=== PATIENT | male | born 1945 | race Caucasian/White ===

== ENCOUNTER → 2024-04-01 | Outpatient (CLI) | payer MEDICARE, BC, SELFPAY ==
[2024-04-02 20:41] LABS: Prostate Specific Antigen 0.41 ng/mL (0-4.00)
== END | disposition home or self-care (01) ==
PROVIDERS: PCP Internal Medicine; Referring Provider Urology; Visit Provider Urology
DX: N40.1 Benign prostatic hyperplasia with lower urinary tract symptoms (principal)
CPT/HCPCS: 36415; 84153

== ENCOUNTER → 2024-04-01 | Outpatient (BNVA) | payer MEDICARE, BC, SELFPAY | END | disposition home or self-care (01) | PROVIDERS: PCP Internal Medicine; Referring Provider Internal Medicine; Visit Provider Urology | DX: N40.1 Benign prostatic hyperplasia with lower urinary tract symptoms (principal); N13.8 Other obstructive and reflux uropathy; I10 Essential (primary) hypertension; E78.5 Hyperlipidemia, unspecified; Z87.442 Personal history of urinary calculi | CPT/HCPCS: 81003; 99212; G0463 ==

== ENCOUNTER → 2024-04-25 | Outpatient (CLI) | payer MEDICARE, BC, SELFPAY ==
[2024-04-25 13:17] LABS: Collection Type, Urine Clean Catch; Squamous Epithelial Cell,Urine 0 /hpf (0-5)
[2024-04-25 13:42] LABS: Bilirubin,Urine Negative (Negative); Blood,Urine Trace (Negative); Clarity,Urine Clear (Clear/Hazy); Color,Urine Lt-Yellow (Lt Yel-Yel); Glucose, Urine Negative (Negative); Ketones,Urine Negative (Negative); Leukocyte Esterase,Urine Negative (Negative); Nitrite,Urine Negative (Negative); Protein,Urine Negative (Neg - Trace); RBC,Urine < 1 /hpf (0-3); Specific Gravity,Urine 1.011 (1.001-1.035); Urobilinogen,Urine Negative mg/dL (0.0-1.0); WBC,Urine 1 /hpf (0-5)
[2024-04-25 13:47] LABS: Parathyroid Hormone Intact 39.5 pg/ml (18.5-88.0)
[2024-04-25 13:59] LABS: Vitamin D 25 Hydroxy Total 32.9 ng/mL (7.3-40.2)
[2024-04-25 14:05] LABS: Alanine Aminotransferase 30 U/L (10-49); Albumin, Serum 4.4 gm/dL (3.4-4.8); Alkaline Phosphatase 97 U/L (46-116); Anion Gap 6 (7-16); Aspartate Amino Transferase 28 U/L (0-34); BUN/Creatinine Ratio 13 Ratio (12-20); Bilirubin,Total 0.6 mg/dL (0.3-1.2); Blood Urea Nitrogen 12 mg/dL (9-23); Carbon Dioxide 28.4 mMol/L (20.0-31.0); Chloride 110 mMol/L (98-107); Creatinine (Component) 0.9 mg/dL (0.6-1.3); Globulin 2.2 gm/dL (2.3-3.5); Glucose 98 mg/dL (74-106); Osmolality,Calculated 286 (275-295); Phosphorous 3.3 mg/dL (2.4-5.1); Potassium 4.5 mMol/L (3.4-5.1); Sodium 144 mMol/L (136-145); Total Protein 6.6 gm/dL (5.7-8.2); eGFR > 60 See Note
[2024-04-25 15:17] LABS: Cardiac Risk Estimate 2.2 RATIO (4.0-6.7); Cholesterol 96 mg/dL (132-200); HDL Cholesterol 43 mg/dL (40-60); LDL Cholesterol,Calculated 37 mg/dL (0-130); Triglycerides 81 mg/dL (30-150)
== END | disposition home or self-care (01) ==
LOC: COPL 11:54
PROVIDERS: PCP Internal Medicine; Referring Provider Internal Medicine; Visit Provider Internal Medicine
DX: I10 Essential (primary) hypertension (principal); E78.5 Hyperlipidemia, unspecified; N20.0 Calculus of kidney
CPT/HCPCS: 36415; 80053; 80061; 81001; 82306; 83970; 84100; 84550

== ENCOUNTER → 2024-04-29 | Outpatient (CLI) | payer MEDICARE, BC, SELFPAY ==
[2024-04-29 10:34] LABS: Misc Send Out* See Sep Rpt
== END | disposition home or self-care (01) ==
LOC: SLDO 09:59
PROVIDERS: Referring Provider Internal Medicine; Visit Provider Internal Medicine
DX: N20.0 Calculus of kidney (principal)

== ENCOUNTER → 2024-05-02 | Outpatient (BNVA) | payer MEDICARE, BC, SELFPAY | END | disposition home or self-care (01) | PROVIDERS: PCP Internal Medicine; Referring Provider Internal Medicine; Visit Provider Urology | DX: N40.1 Benign prostatic hyperplasia with lower urinary tract symptoms (principal); R39.12 Poor urinary stream; I10 Essential (primary) hypertension; E78.00 Pure hypercholesterolemia, unspecified; I48.91 Unspecified atrial fibrillation; Z86.73 Personal history of transient ischemic attack (TIA), and cerebral infarction without residual deficits | CPT/HCPCS: 51741; 51798 ==

== ENCOUNTER → 2024-07-02 | Outpatient (BNVA) | payer MEDICARE, BC, SELFPAY | END | disposition home or self-care (01) | PROVIDERS: PCP Internal Medicine; Referring Provider Internal Medicine; Visit Provider Urology | DX: N40.1 Benign prostatic hyperplasia with lower urinary tract symptoms (principal); N13.8 Other obstructive and reflux uropathy; R39.198 Other difficulties with micturition; Z90.79 Acquired absence of other genital organ(s); I10 Essential (primary) hypertension; E78.00 Pure hypercholesterolemia, unspecified; I48.91 Unspecified atrial fibrillation; Z86.73 Personal history of transient ischemic attack (TIA), and cerebral infarction without residual deficits | CPT/HCPCS: 76872 ==

== ENCOUNTER → 2024-07-09 | Outpatient (BNVA) | payer MEDICARE, BC, SELFPAY | END | disposition home or self-care (01) | PROVIDERS: PCP Internal Medicine; Referring Provider Internal Medicine; Visit Provider Urology | DX: N32.89 Other specified disorders of bladder (principal); N40.1 Benign prostatic hyperplasia with lower urinary tract symptoms; N13.8 Other obstructive and reflux uropathy; Z86.73 Personal history of transient ischemic attack (TIA), and cerebral infarction without residual deficits; I48.91 Unspecified atrial fibrillation; E78.00 Pure hypercholesterolemia, unspecified; I10 Essential (primary) hypertension | CPT/HCPCS: 52000; 81003; 96372; A4217; A4649; C1894; J1580; A9270 ==

== ENCOUNTER → 2024-08-05 | Outpatient (CLI) | payer MEDICARE, BC, SELFPAY ==
[2024-08-05 13:57] LABS: Collection Type, Urine Clean Catch; Squamous Epithelial Cell,Urine 0 /hpf (0-5)
[2024-08-05 14:24] LABS: Basophils # (Auto) 0.1 Thou/mm3 (0.0-0.2); Basophils % (Auto) 1 % (0-2.5); Eosinophils # (Auto) 0.2 Thou/mm3 (0.0-0.5); Eosinophils % (Auto) 3 % (0-10); Hematocrit 37.5 % (41.0-53.0); Hemoglobin 12.4 g/dL (13.5-16.0); Immature Granulocytes % (Auto) 1 % (0-0); Immature Granulocytes Auto 0.03 Thou/mm3 (0.00-0.00); Lymphocytes # (Auto) 1.6 Thou/mm3 (1.0-4.8); Lymphocytes % (Auto) 25 % (10-50); Mean Corpuscular HGB Conc 33.1 g/dl (31.0-37.0); Mean Corpuscular Hemoglobin 31.3 pg (25.0-35.0); Mean Corpuscular Volume 95 fL (80-100); Monocytes # (Auto) 0.7 Thou/mm3 (0.0-0.8); Monocytes % (Auto) 12 % (0-12); Neutrophils # (Auto) 3.8 Thou/mm3 (1.8-7.7); Neutrophils % (Auto) 59 % (37-80); Nucleated Red Blood Cell % 0 /100 WBC (0); Platelet Count 231 Thou/mm3 (140-440); RDW Standard Deviation 44.4 fL (35.1-43.9); Red Blood Count 3.96 Miln/mm3 (4.50-5.90); White Blood Count 6.4 Thou/mm3 (3.8-10.6)
[2024-08-05 14:35] LABS: Alanine Aminotransferase 27 U/L (10-49); Albumin, Serum 4.3 gm/dL (3.4-4.8); Albumin/Globulin Ratio 1.8 (1.2-2.2); Alkaline Phosphatase 97 U/L (46-116); Anion Gap 9 (7-16); Aspartate Amino Transferase 23 U/L (0-34); BUN/Creatinine Ratio 16 Ratio (12-20); Bilirubin,Total 0.7 mg/dL (0.3-1.2); Blood Urea Nitrogen 14 mg/dL (9-23); Calcium 8.7 mg/dL (8.3-10.6); Calcium (Corrected) 8.7 mg/dL (8.5-10.1); Carbon Dioxide 25.5 mMol/L (20.0-31.0); Cardiac Risk Estimate 2.4 RATIO (4.0-6.7); Chloride 109 mMol/L (98-107); Cholesterol 92 mg/dL (132-200); Creatinine (Component) 0.9 mg/dL (0.6-1.3); Globulin 2.4 gm/dL (2.3-3.5); Glucose 101 mg/dL (74-106); HDL Cholesterol 38 mg/dL (40-60); LDL Cholesterol,Calculated 33 mg/dL (0-130); Osmolality,Calculated 285 (275-295); Potassium 4.2 mMol/L (3.4-5.1); Sodium 143 mMol/L (136-145); Thyroid Stimulating Hormone 1.71 uIU/mL (0.55-4.78); Total Protein 6.7 gm/dL (5.7-8.2); Triglycerides 103 mg/dL (30-150); Uric Acid 4.4 mg/dL (3.7-9.2); eGFR > 60 See Note
[2024-08-05 14:37] LABS: Vitamin B12 458 pg/mL (211-911); Vitamin D 25 Hydroxy Total 32.7 ng/mL (7.3-40.2)
[2024-08-05 14:53] LABS: Bacteria,Urine Rare; Bilirubin,Urine Negative (Negative); Blood,Urine Trace (Negative); Clarity,Urine Clear (Clear/Hazy); Color,Urine Yellow (Lt Yel-Yel); Glucose, Urine Negative (Negative); Ketones,Urine Negative (Negative); Leukocyte Esterase,Urine Negative (Negative); Nitrite,Urine Negative (Negative); PH,Urine 5.5 (5.0-7.0); Protein,Urine Negative (Neg - Trace); RBC,Urine 6 /hpf (0-3); Specific Gravity,Urine 1.027 (1.001-1.035); Urobilinogen,Urine Negative mg/dL (0.0-1.0); WBC,Urine 1 /hpf (0-5)
== END | disposition home or self-care (01) ==
LOC: COPL 13:03
PROVIDERS: PCP Internal Medicine; Referring Provider Internal Medicine; Visit Provider Internal Medicine
DX: Z00.00 Encounter for general adult medical examination without abnormal findings (principal); I10 Essential (primary) hypertension; E78.5 Hyperlipidemia, unspecified; D51.9 Vitamin B12 deficiency anemia, unspecified; E55.9 Vitamin D deficiency, unspecified
CPT/HCPCS: 36415; 80053; 80061; 81001; 82306; 82607; 84443; 84550; 85025

== ENCOUNTER 2024-08-18 11:16 | Emergency (ER) | payer MEDICARE, BC, SELFPAY ==
[2024-08-18 11:17] VITALS: BMI 30.7
--- NOTE | 2024-08-18 11:26 | EKG_ITS ---
[facility] Test Date: 2024-08-18 Pat Name: MERCEDES PINTO Department: Room: - Gender: Male Physical Therapy Nurse: : 1945 Requested By: Karan Cortez (GET) Order Number: [id number] Reading MD: Karan Cortez (SUPERVISOR MAPPING) Measurements Intervals Gibson Rate: 69 P: 48 WY: 245 QRS: -32 QRSD: 114 T: 58 QT: 384 QTc: 413 Interpretive Statements SINUS RHYTHM WITH FIRST DEGREE AV BLOCK WITH OCCASIONAL VENTRICULAR PREMATURE COMPLEXES LEFT AXIS DEVIATION [QRS AXIS < -30] MODERATE INTRAVENTRICULAR CONDUCTION DELAY [110+ ms QRS DURATION] NONSPECIFIC T-WAVE ABNORMALITY Compared to ECG 05/08/2023 14:43:39 First degree AV block now present Intraventricular conduction delay now present T-wave abnormality now present Atrial fibrillation no longer present /store/S0/[id number]/[id number].pdf
[2024-08-18 11:36] VITALS: BP 133/68; PULSE 74; RESP 16; TEMP 36.9; O2SAT 96
--- NOTE | 2024-08-18 11:43 | XR_ITS ---
Examination: CT brain head without contrast. 2-D sagittal coronal reconstructions Date and time of exam:August 15, 2024 1159 hrs. Indications: Syncopal episode patient fell today with into the head, head pain CTDI: vol (mGy):49.8 DLP: (mGycm):968 Technique: Multiple CT axial sections of the brain have been obtained, 5 mm slice thickness. Contrast has not been administered. 2-D sagittal, coronal reconstructions have been obtained Low dose protocols were performed. One or more of the following dose reduction techniques were used; automated exposure control, adjustment of the mA and/or KV according to patient size, use of iterative reconstruction technique. Findings: No significant ventricular enlargement. Intra-axial or extra-axial hemorrhage density is not seen. No mass effect or midline shift Basal cisterns are not remarkable. Fourth ventricle is midline. Cranial vault intact. Impression: Negative for acute hemorrhage, mass effect or midline shift
--- NOTE | 2024-08-18 11:43 | XR_ITS ---
Examination: CT cervical spine without contrast 2-D sagittal reconstructions 2-D coronal reconstructions 3-D reconstructions. Exam date and time:August 18, 2024 11:59 AM Indications: Syncopal episode today, patient fell with injury to the neck, neck pain CTDI:vol (mGy) 9.63 DLP: (mGycm) 205 Technique: Multiple 2 mm axial sections of the cervical spine have been obtained. The coronal and sagittal reconstructions have been obtained. 3-D reconstructions have been obtained. Low dose protocols were performed. One or more of the following dose reduction techniques were used; automated exposure control, adjustment of the mA and/or KV according to patient size, use of iterative reconstruction technique. Findings: Axial sections demonstrate intact base of the skull. C1 exhibit satisfactory relationship to the odontoid. No acute cervical vertebral body fracture seen. Alignment posterior spinous processes satisfactory. Impression: No acute cervical fracture.
--- NOTE | 2024-08-18 11:43 | XR_ITS ---
Examination: AP chest single view Technique one AP portable semiupright chest single view Date and time: August 18, 2024 1148 hrs. Comparison August 18, 2022 Indications: Onset chest pain this morning. Findings: Mild prominence left ventricle No pneumonia or pulmonary edema. The osseous structures are intact Impression: No active disease
--- NOTE | 2024-08-18 11:44 | PD.EDRME ---
Rapid Medical Screening Exam E Arrival date/time: 08/18/24 11:16 79-year-old male presents to the emergency department today for complaints of dizziness and syncopal episode today Chief Complaint: Syncope / Near Syncope Vital signs: Vital Signs Temperature 98.4 F 08/18/24 11:36 Pulse Rate 74 08/18/24 11:36 Respiratory Rate 16 08/18/24 11:36 Blood Pressure 133/68 H 08/18/24 11:36 Pulse Oximetry (%) 96 08/18/24 11:36 Oxygen Delivery Method Room Air 08/18/24 11:36
--- NOTE | 2024-08-18 11:56 | PD.EDADULT ---
ED General RME/HPI General Chief complaint: Syncope / Near Syncope Stated complaint: S/P SYNCOPE LAST NIGHT, NOT FEELING WELL TODAY Time Seen by Provider: 08/18/24 11:49 Arrival date/time: 08/18/24 11:16 CC: Nausea vomiting syncope HPI patient 8 TV tray meal last night then became dizzy, resulting in nausea vomiting, this after noticing that his blood pressure was high, took an extra blood pressure pill. The patient states at 1 point he called into the bathroom and thinks he passed out , patient woke up after it was dark, not knowing how long he was down in the bathroom, at that time dizziness had resolved patient got up went to bed and slept through the rest of the night, got up this morning had normal urination now all other symptoms are resolved patient is awake alert oriented said he took his morning medications had a half bowl of cereal is awake alert oriented nontoxic-appearing and not in any acute distress. RME / HPI RME / HPI narrative: 08/18/24 11:16 79-year-old male presents to the emergency department today for complaints of dizziness and syncopal episode today Related Data Home Medications ?Medication ?Instructions ?Recorded ?Confirmed apixaban 5 mg tablet (Eliquis) 5 mg PO BID 12/16/21 08/18/24 atorvastatin 80 mg tablet 80 mg PO QPM 12/16/21 08/18/24 valsartan 160 mg tablet 160 mg PO QDAY 09/15/22 08/18/24 tamsulosin 0.4 mg capsule 0.4 mg PO QDAY 07/02/24 08/18/24 allopurinol 300 mg tablet 300 mg PO QDAY 08/18/24 08/18/24 amlodipine 10 mg tablet 10 mg PO QDAY 08/18/24 08/18/24 cetirizine 10 mg tablet mg 08/18/24 Previous Rx's ?Medication ?Instructions ?Recorded aspirin 81 mg tablet,delayed 81 mg PO QDAY #30 tabs 10/24/21 release amiodarone 200 mg tablet 200 mg PO QDAY #30 tabs 08/24/23 Held on 08/18/24. Instructions: Doctor's Order Allergies Allergy/AdvReac Type Severity Reaction Status Date / Time sulfamethoxazole Allergy Severe Rash Verified 08/18/24 11:17 trimethoprim Allergy Severe Rash Verified 08/18/24 11:17 Past Medical History Past Medical History NEUROLOGIC: Positive Neurological Disorders and Cerebrovascular Accident (a yr ago); Negative Transient Ischemic Attacks (TIA), Dementia, Alzheimer's Disease, Parkinson's Disease, Brain Tumor, Meningitis, Seizures, Epilepsy, Multiple Sclerosis, Cerebral Palsy, Amyotrophic Lateral Sclerosis (ALS/Neeru Gehrig's), Guillain-[place] Syndrome, Paralysis, Peripheral Neuropathy, Vela's Palsy, Subdural Hematoma, Migraine, Head Trauma, Spinal Cord Injury or Traumatic Brain Injury CARDIAC: Positive Cardiac Disorders, Cardiac Arrhythmia, Atrial Fibrillation, Hypercholesterolemia and Hypertension; Negative Myocardial Infarction, Angina, Heart Murmur, Coronary Artery Disease, Atherosclerotic Heart Disease, Peripheral Vascular Disease, Aneurysm, Congestive Heart Failure, Congenital Heart Disease, Rheumatic Fever, Cardiomyopathy, Edema, Pericarditis, Cellulitis, Deep Vein Thrombosis, Hypotension or Varicose Veins RESPIRATORY: Positive Bronchitis and Sleep Apnea (cpap); Negative Chronic Obstructive Pulmonary Disease (COPD), Asthma, Emphysema, Pneumonia, Pulmonary Fibrosis, Cystic Fibrosis, Tuberculosis, Pulmonary Embolism or Pulmonary Edema GASTROINTESTINAL: Positive Gastrointestinal Disorders and Gall Bladder Disease; Negative Hepatitis, Cirrhosis, Pancreatitis, Celiac Disease, Gastrointestinal Bleed, Esophageal Varices, Kirkland's Esophagus, Colitis, Ulcerative Colitis, Diverticulitis, Diverticulosis, Ulcer, Colorectal Cancer, Irritable Bowel, Crohn's Disease, Obstructive Bowel, Hiatal Hernia, Hemorrhoids, Gastroesophageal Reflux Disease or Obesity GENITOURINARY: Positive Genitourinary Disorders, Kidney Stones and Benign Prostatic Hyperplasia; Negative Renal Disease, Polycystic Kidney Disease, Neurogenic Bladder, Inguinal Hernia, Dialysis or Prostate Cancer REPRODUCTIVE: Negative Breast Cancer, Fibroids, Genital Herpes, Gonorrhea, Syphilis or Testicular Cancer MUSCULOSKELETAL: Positive Musculoskeletal Disorders and Arthritis; Negative Muscular Dystrophy, Myasthenia Gravis, Marfan's Syndrome, Bone Cancer, Rheumatoid Arthritis, Osteoporosis, Degenerative Disk Disease, Gout, Scoliosis, Carpal Tunnel Syndrome, Fibromyalgia, Fractures, Degenerative Joint Disease, Osteomyelitis or Poliovirus ENT: Positive Deafness (HEARING AIDS ROGELIO); Negative Cataracts, Glaucoma, Blind, Retinal Detachment, Macular Degeneration, Ear Infection, Head Trauma or Eye Prosthesis ENDOCRINE: Negative Endocrine Disorders, Diabetes Mellitus Type 1, Diabetes Mellitus Type 2, Hypoglycemia, Rashawn's Syndrome, [place]'s Disease, Hyperthyroidism, Hypothyroidism, Parathyroid Disease, Pituitary Disease, Systemic Lupus Erythematosus, Syndrome of Inappropriate Antidiuretic Hormone (SIADH), Adrenal Disease or Graves' Disease HEMATOLOGIC: Negative Blood Disorders, Anemia, Leukemia, Hemophilia, Thalassemia, Sickle Cell Disease or Clotting Problems PSYCHO/SOCIAL: Negative Psychiatric Problems, Schizophrenia, Recreational Drug Use, Bipolar Disorder, Depression, Anxiety, Behavior Problems, Self-Mutilation, Attention Deficit Disorder, Attention Deficit Hyperactivity Disorder, Depression, Post Traumatic Stress Disorder or Eating Disorder OTHER HISTORY: Positive Hospitalization (stroke), MRSA (hips down to legs had sores), Chicken Pox, Measles and Mumps; Negative Autoimmune Disease, Autism, Shingles, Falls, Blood Transfusions (REFUSES), Blood Transfusion Reaction (REFUSES), Anesthesia Reactions, Organ Transplant, Radiation Therapy, VRSA, Vancomycin-Resistant Enterococci, Human Immunodeficiency Virus (HIV), Rubella (Bel[place]ian Measles), Pertussis, Clostridium Difficile, Cancer, Breast Cancer, Cervical Cancer, Colorectal Cancer, Lung Cancer, Ovarian Cancer, Prostate Cancer or Testicular Cancer Family History FAMILY HISTORY: Positive Family Cardiac Disorders, Family Gastrointestinal Problems, Family Cancer and Family Surgery; Negative Family Psychiatric Problems, Family Respiratory Disorders or Family Anesthesia Reaction Surgical History SURGICAL: Positive Cardiac Catheterization, Angiogram, Abdominal Surgery, Transurethral Resection, Joint Replacement and Vasectomy; Negative Cardiac Surgery, Open Heart Surgery, Coronary Artery Bypass Graft, Vascular Surgery, Coronary Stent, Pacemaker, Auto Implanted Cardiovert Defib, Carotid Endarterectomy, Endocrine Surgery, Ear Surgery, Eye Surgery, Nose Surgery, Oral Surgery, Tonsillectomy, Adenoidectomy, Cochlear Implant, Corneal Transplant, Throat Surgery, Tracheostomy, Nephrectomy, Amputation, Open Reduction Internal Fixation, Arthroscopy, Neurologic Surgery, Brain Shunt, Mastectomy, Lumpectomy, Hysterectomy, Tubal Ligation, Section or Organ Transplant Social History SMOKING STATUS: Never smoker SUBSTANCE USE: does not use ED Exam Narrative Physical exam: [General: Not in any acute distress Head normocephalic HEENT: Within acceptable limits Neck is supple nontender Chest equal chest rise nontender to palpation Respiratory: Clear to auscultation no wheezes crackles or rubs CV: Rate rhythm is regular no murmurs rubs or clicks Abdomen is soft nontender no masses positive bowel sounds all 4 quadrants Back: No CVA tenderness no spinous process tenderness from cervical spine thoracic and lumbar spine Skin: Intact no petechiae rash induration ulceration or crepitus Extremities: Moving all extremity against resistance cap refill less than 2 seconds neurosensory intact Neuro: Awake alert oriented x3 Glascow coma 15 no focal deficits] Course Quality Measures none Orders Category Date Time Status Sloop Captain NOW Care 08/18/24 11:43 Completed EKG (ED ONLY) *Do not use* NOW Care 08/18/24 11:[address] cervical spine wo con Stat Exams 08/18/24 11:[address] head/brain wo con Stat Exams 08/18/24 11:43 Completed EKG (ED Only) Stat Exams 08/18/24 11:26 Draft XR chest 1V portable Stat Exams 08/18/24 11:43 Completed B-Type Natriuretic Peptide Stat Lab 08/18/24 12:12 Completed CBC Stat Lab 08/18/24 12:12 Completed Comprehensive Metabolic Panel Stat Lab 08/18/24 12:12 Completed Creatine Kinase Stat Lab 08/18/24 12:12 Completed Magnesium Stat Lab 08/18/24 12:12 Completed Partial Thromboplastin Time Stat Lab 08/18/24 12:12 Completed Prothrombin Time with INR Stat Lab 08/18/24 12:12 Completed Troponin I Stat Lab 08/18/24 12:12 Completed Vital Signs Vital signs: Vital Signs Temperature 98.4 F 08/18/24 11:36 Pulse Rate 74 08/18/24 11:36 Respiratory Rate 16 08/18/24 11:36 Blood Pressure 133/68 H 08/18/24 11:36 Pulse Oximetry (%) 96 08/18/24 11:36 Oxygen Delivery Method Room Air 08/18/24 11:36 Discharge Plan Plan Patient Disposition: HOME (Self Care) Patient condition on transfer: Stable Prescriptions/Referrals Prescriptions/Med Rec: No Action tamsulosin 0.4 mg capsule 0.4 mg PO QDAY aspirin 81 mg tablet,delayed release (DR/EC) 81 mg PO QDAY Qty: 30 0RF amiodarone 200 mg Tablet 200 mg PO QDAY Qty: 30 0RF atorvastatin 80 mg Tablet 80 mg PO QPM Eliquis 5 mg tablet 5 mg PO BID Patient Comments: TAKE 1 TABLET BY MOUTH TWICE A DAY valsartan 160 mg Tablet 160 mg PO QDAY cetirizine 10 mg tablet Patient Comments: TAKE 1 TABLET BY MOUTH EVERY DAY amlodipine 10 mg tablet 10 mg PO QDAY allopurinol 300 mg tablet 300 mg PO QDAY Referrals: Kaycee Salinas MD [Primary Care Provider] - In 1 week Problem List Clinical Impression: Nausea & vomiting, Syncope Patient/Caregiver Discharge Instructions Education Materials: Causes of Syncope, ED Diet for Vomiting or ..., ED Fainting, Uncertain Cause Print Language: Luxembourger Stand Alone Forms: Aysha Award Info., Patient Portal Info Letter ALEYDA/CELINA Supervising Physician STEPHON Supervising Physician: Deny Khan ENP [facility] Clinical Information Provided by patient Medical Records Reviewed [facility] Meds/Rx Considered, not Ordered None Labs/Rad/Tests considered, not Ordered None Chronic Illness/Social Conditions Add or document further as needed: Hypertension hyperlipidemia CVA resulting in blood thinners. EKG EKG Interpretation narrative: EKG performed at 1137 shows a ventricular rate of 69 SC interval 245 QRS of 114 QTc of 403 this is sinus rhythm first-degree block. Lab Interpretation Lab(s) interpretation(s): CBC shows no leukocytosis there is a stable anemia with hemoglobin of 12.8 and hematocrit of 37.5, no thrombocytopenia Coags show PT of 12.6 all other results are within acceptable limits CMP shows no significant electrolyte imbalances renal impairment transaminitis or T. bili elevation Troponin is within acceptable limits Creatinine kinase is at 137. Imaging Imaging interpretation: interpreted by me Provider imaging interpretation(s): CT head and C-spine as interpreted by me read by radiology showed no acute finding requires emergent or immediate intervention. Chest x-ray as interpreted by me and read by radiology as negative for any acute finding. Radiology reports / interpretation(s): Review the laboratory results and imaging shows no acute finding requires emergent or immediate intervention I am not sure if this was caused by the food the patient ate or if there is no relations with it however the patient is awake alert oriented he is in no deterioration neurologic status throughout his visit the emergency to room states that he has no nausea no vomiting no lightheaded and no dizziness. Will discharge the patient home with syncope nausea and vomiting. Diagnosis Differential diagnosis: Closed head injury rhabdo myelosis electrolyte imbalance renal failure
[2024-08-18 12:25] LABS: Basophils # (Auto) 0.1 Thou/mm3 (0.0-0.2); Basophils % (Auto) 1 % (0-2.5); Eosinophils # (Auto) 0.1 Thou/mm3 (0.0-0.5); Eosinophils % (Auto) 1 % (0-10); Hematocrit 37.5 % (41.0-53.0); Hemoglobin 12.8 g/dL (13.5-16.0); Immature Granulocytes % (Auto) 1 % (0-0); Immature Granulocytes Auto 0.04 Thou/mm3 (0.00-0.00); Lymphocytes # (Auto) 1.2 Thou/mm3 (1.0-4.8); Lymphocytes % (Auto) 15 % (10-50); Mean Corpuscular HGB Conc 34.1 g/dl (31.0-37.0); Mean Corpuscular Volume 91 fL (80-100); Monocytes % (Auto) 13 % (0-12); Neutrophils # (Auto) 5.7 Thou/mm3 (1.8-7.7); Neutrophils % (Auto) 71 % (37-80); Nucleated Red Blood Cell % 0 /100 WBC (0); Platelet Count 203 Thou/mm3 (140-440); RDW Standard Deviation 42.2 fL (35.1-43.9); Red Blood Count 4.13 Miln/mm3 (4.50-5.90)
[2024-08-18 12:59] LABS: INR 1.2 (0.9-1.3); Partial Thromboplastin Time 30.3 Seconds (22.0-36.0); Prothrombin Time 12.6 Seconds (9.0-12.2)
[2024-08-18 13:02] LABS: Alanine Aminotransferase 34 U/L (10-49); Albumin, Serum 4.6 gm/dL (3.4-4.8); Albumin/Globulin Ratio 1.8 (1.2-2.2); Alkaline Phosphatase 92 U/L (46-116); Anion Gap 10 (7-16); Aspartate Amino Transferase 25 U/L (0-34); BUN/Creatinine Ratio 13 Ratio (12-20); Bilirubin,Total 0.6 mg/dL (0.3-1.2); Blood Urea Nitrogen 10 mg/dL (9-23); Calcium 9.4 mg/dL (8.3-10.6); Calcium (Corrected) 9.4 mg/dL (8.5-10.1); Carbon Dioxide 25.2 mMol/L (20.0-31.0); Chloride 105 mMol/L (98-107); Creatine Kinase 138 U/L (34-171); Creatinine (Component) 0.8 mg/dL (0.6-1.3); Estimated Creatinine Clearance 90.4 mL/min (>60); Globulin 2.5 gm/dL (2.3-3.5); Glucose 107 mg/dL (74-106); Magnesium 2.1 mg/dL (1.6-2.6); Osmolality,Calculated 278 (275-295); Potassium 3.8 mMol/L (3.4-5.1); Sodium 140 mMol/L (136-145); Total Protein 7.1 gm/dL (5.7-8.2); Troponin I < 0.020 ng/mL (0.0-0.045); eGFR > 60 See Note
[2024-08-18 13:35] LABS: B-Type Natriuretic Peptide 102 pg/mL (0-100)
[2024-08-18 14:05] VITALS: BP 137/84; PULSE 77; RESP 12; TEMP 36.9; O2SAT 96
== END 2024-08-18 14:05 | disposition home or self-care (01) ==
PROVIDERS: Nurse Practitioner Primary Care; Emergency Provider Family Medicine; PCP Internal Medicine
DX: R55 Syncope and collapse (principal); R11.2 Nausea with vomiting, unspecified; M54.2 Cervicalgia; R07.9 Chest pain, unspecified; R51.9 Headache, unspecified
CPT/HCPCS: 36415; 70450; 71045; 72125; 80053; 82550; 83735; 83880; 84484; 85025; 85610; 85730; 93005; 99284

== ENCOUNTER 2024-09-01 20:34 | Emergency (ER) | payer MEDICARE, BC, SELFPAY ==
[2024-09-01 20:43] VITALS: BMI 30.8
--- NOTE | 2024-09-01 20:44 | PD.EDCHEST ---
ED Chest Pain RME/HPI General Chief Complaint: Chest Pain Stated Complaint: CHEST PAIN Time Seen by Provider: 09/01/24 20:58 Arrival date/time: 09/01/24 20:34 RME / HPI RME / HPI narrative: This section includes all my notes and documentations, including HPI, PE, and ED course. Rhys Dumont MD HPI: 79 y/ male with Hx of CVA, Gall Bladder Disease, Cardiac Arrhythmia, Atrial Fibrillation, Hypercholesterolemia, and HTN presents with sharp, tight chest pain x 1.5 hours. Pain is a 7/10. Patient is on Eliquis. Describes intermittent pain that lasts few seconds at a time. No shortness of breath. No nausea or vomiting. No leg pain or swelling. No palpitations. No unusual fatigue or malaise. No other complaints. ROS: All negative except as documented in HPI. Physical Exam: General: Alert and oriented. No acute distress when remaining still. Eyes: Conjunctivae and lids clear. ENT: No nasal congestion. Neck: Supple. Heart: RRR. Lungs: No respiratory distress. Good air movement. No rhonchi, wheezing, rales. Chest: No tenderness. Abdomen: Soft and nontender. Skin: Warm and dry. Neuro: Alert and oriented X 3. I reviewed all diagnostic test results: My interpretation of the EKG is: Sinus rhythm (92 bpm) with nonspecific ST-T changes. My interpretation of the chest x-ray is: NAD. Blood tests unremarkable. At this point, diagnoses include: Chest wall pain. Recommended more outpatient workup. Based on my best medical judgment, made decision no further evaluation or treatment indicated at this time. Patient understands and agrees to the discharge instructions customized and printed, see below. Discharge instructions from Dr. Dumont: 1. After extensive evaluation, there is no life-threatening condition.? Such as heart attack or pneumothorax (collapsed lung). 2. Your pain is originating from the chest wall and not from an internal organ.? The chest wall has many joints and muscles between the ribs, so sprains and strains are common.?? The pain also can be due to pinched nerve which can cause severe and sharp intermittent pain. 3. Apply ice or heat if helpful.? Tylenol/ibuprofen as needed. Diazepam as needed. 4. See a private doctor on 09/03/2024 for recheck and second opinion. To make sure there is no serious underlying heart condition, ask to help you get more tests for your heart that cannot be done here in the ER.? Such as Holter Monitor (cardiac monitoring at home from a day to even a month), heart stress test (on treadmill or with medication), echocardiogram (imaging of your heart structures), heart catherization (checking for blockages in your heart arteries), and a referral to see a Condenser Winder.? 5. Seek immediate medical care with worsening or with any concerns.?? Rhys Dumont MD Related Data Home Medications ?Medication ?Instructions ?Recorded ?Confirmed apixaban 5 mg tablet (Eliquis) 5 mg PO BID 12/16/21 08/18/24 atorvastatin 80 mg tablet 80 mg PO QPM 12/16/21 08/18/24 valsartan 160 mg tablet 160 mg PO QDAY 09/15/22 08/18/24 tamsulosin 0.4 mg capsule 0.4 mg PO QDAY 07/02/24 08/18/24 allopurinol 300 mg tablet 300 mg PO QDAY 08/18/24 08/18/24 amlodipine 10 mg tablet 10 mg PO QDAY 08/18/24 08/18/24 cetirizine 10 mg tablet mg 08/18/24 Previous Rx's ?Medication ?Instructions ?Recorded aspirin 81 mg tablet,delayed 81 mg PO QDAY #30 tabs 10/24/21 release amiodarone 200 mg tablet 200 mg PO QDAY #30 tabs 08/24/23 Held on 08/18/24. Instructions: Doctor's Order diazepam 2 mg tablet 2 mg PO TID PRN muscle spasm #20 09/01/24 tabs Allergies Allergy/AdvReac Type Severity Reaction Status Date / Time sulfamethoxazole Allergy Severe Rash Verified 08/18/24 11:17 trimethoprim Allergy Severe Rash Verified 08/18/24 11:17 Review of Systems Review of Systems Systems Reviewed: All systems reviewed, normal except as documented Past Medical History Past Medical History NEUROLOGIC: Positive Neurological Disorders and Cerebrovascular Accident CARDIAC: Positive Cardiac Disorders, Cardiac Arrhythmia, Atrial Fibrillation, Hypercholesterolemia and Hypertension RESPIRATORY: Positive Bronchitis and Sleep Apnea GASTROINTESTINAL: Positive Gastrointestinal Disorders and Gall Bladder Disease GENITOURINARY: Positive Genitourinary Disorders, Kidney Stones and Benign Prostatic Hyperplasia MUSCULOSKELETAL: Positive Musculoskeletal Disorders and Arthritis ENT: Positive Deafness HEMATOLOGIC: Positive Anemia OTHER HISTORY: Positive Hospitalization, MRSA, Chicken Pox, Measles, Mumps and Cancer Family History FAMILY HISTORY: Positive Family Cardiac Disorders, Family Gastrointestinal Problems, Family Cancer and Family Surgery Surgical History SURGICAL: Positive Cardiac Catheterization, Angiogram, Abdominal Surgery, Transurethral Resection and Joint Replacement ED Exam Narrative Physical exam: Refer to HPI Course Course Course Narrative: CXR is ordered for determining the etiology of shortness of breath. Quality Measures none Orders Category Date Time Status EKG (ED ONLY) *Do not use* NOW Care 09/01/24 20:38 Completed EKG (ED Only) Stat Exams 09/01/24 20:38 Ordered XR chest 1V portable Stat Exams 09/01/24 20:45 Completed BMP [Basic Metabolic Panel] Stat Lab 09/01/24 20:55 Completed CBC Stat Lab 09/01/24 20:55 Completed Magnesium Stat Lab 09/01/24 20:55 Completed Troponin I Stat Lab 09/01/24 20:55 Completed Diazepam [Valium] Med 09/01/24 20:44 Discontinued 2.5 mg PO X1 ONE Vital Signs Vital signs: Vital Signs Temperature 98.7 F 09/01/24 20:46 Pulse Rate 81 09/01/24 20:46 Respiratory Rate 20 09/01/24 20:46 Blood Pressure 134/83 H 09/01/24 20:46 Pulse Oximetry (%) 96 09/01/24 20:46 Oxygen Delivery Method Room Air 09/01/24 20:46 Chest Pain MDM Narrative MDM Narrative:: Scribe Attestation: Rosa Calzada am scribing for and in the presence of Dr. Dumont. Provider Notation: Although this document has been carefully reviewed, there may still be some phonetic and other typographical errors.? These errors are purely grammatical due to imperfections in the software program and should not be construed in any way to? compromise the substance of the patient's medical care during this visit. 79 y/ male with Hx of CVA, Gall Bladder Disease, and HTN presents with sharp, tight chest pain x 1.5 hours. Pain is a 7/10. Denies pain with application of pressure. Patient is on Eliquis. No other complaints. Patient data External records reviewed:: [facility] previous records (Reviewed prior ED records from 08/18/24. Patient was seen for Nausea & vomiting.) Clinical information provided by:: patient Social determinants that could affect healthcare access:: none Patient has the following chronic illnesses:: Cerebrovascular Accident, Cardiac Arrhythmia, Atrial Fibrillation, Hypercholesterolemia, Hypertension, Sleep Apnea, Gall Bladder Disease, Kidney Stones, Benign Prostatic Hyperplasia, Arthritis, Deafness, Anemia How is presenting disease/condition affected by chronic disease/condition?: exacerbated by Evaluation data The following diagnostics were reviewed and interpreted by me:: EKG tracing(s) (My interpretation of the EKG is: Sinus rhythm (92 bpm) with nonspecific ST-T changes. Rhys Dumont MD) Lab and/or radiology exams considered but not ordered:: None Interpretation Summary: I reviewed all diagnostic test results: My interpretation of the EKG is: Sinus rhythm (92 bpm) with nonspecific ST-T changes. My interpretation of the chest x-ray is: NAD. Blood tests unremarkable. Medications / Prescriptions Medications or Prescriptions considered but not ordered:: None Medication administrations:: Medication Administration History Discontinued Medications Diazepam (Diazepam 5 Mg Tablet) 2.5 mg PO X1 ONE Stop: 09/01/24 20:45 Last Admin: 09/01/24 20:57 Dose: Not Given Documented By: LEE Non-Admin Reason: Patient Refused Patient declined Valium due to driving. Consultations Consultation(s) initiated? (list below): No Diagnosis Chest Pain Differential Diagnosis: pneumothorax, stable angina, unstable angina pectoris, atypical chest pain, st elevation myocardial infarction, costochondritis, chest pain and biliary colic Most likely diagnosis given after review of the tests above:: Chest wall pain Admission Indicated Admission indicated?: not indicated Explain why admission is indicated or not indicated:: Without severe illness, there was no indication for admission. Admission Request Was there a request for admission?: No Disposition Plan Disposition Plan: Discharge Discharge Attestation Discharge Attestation: The patient and all family members were given an opportunity to ask questions and understood the discharge instructions. Discharge instructions specifically effects, indications for sooner follow up or return to the emergency department, and the expected course of current diagnosis. Patient condition: Stable Discharge Plan Plan Patient Disposition: HOME (Self Care) Prescriptions/Referrals Prescriptions/Med Rec: New diazepam 2 mg tablet 2 mg PO TID PRN (Reason: muscle spasm) Qty: 20 0RF No Action tamsulosin 0.4 mg capsule 0.4 mg PO QDAY aspirin 81 mg tablet,delayed release (DR/EC) 81 mg PO QDAY Qty: 30 0RF amiodarone 200 mg Tablet 200 mg PO QDAY Qty: 30 0RF atorvastatin 80 mg Tablet 80 mg PO QPM Eliquis 5 mg tablet 5 mg PO BID Patient Comments: TAKE 1 TABLET BY MOUTH TWICE A DAY valsartan 160 mg Tablet 160 mg PO QDAY cetirizine 10 mg tablet Patient Comments: TAKE 1 TABLET BY MOUTH EVERY DAY amlodipine 10 mg tablet 10 mg PO QDAY allopurinol 300 mg tablet 300 mg PO QDAY Referrals: Kaycee Salinas MD [Primary Care Provider] - In 1 week Problem List Clinical Impression: Chest wall pain Patient/Caregiver Discharge Instructions Discharge Activity: activity as tolerated Education Materials: ED Chest Wall Pain, Costochondritis Additional Instructions: Discharge instructions from Dr. Dumont: 1. After extensive evaluation, there is no life-threatening condition.? Such as heart attack or pneumothorax (collapsed lung). 2. Your pain is originating from the chest wall and not from an internal organ.? The chest wall has many joints and muscles between the ribs, so sprains and strains are common.?? The pain also can be due to pinched nerve which can cause severe and sharp intermittent pain. 3. Apply ice or heat if helpful.? Tylenol/ibuprofen as needed. Diazepam as needed. 4. See a private doctor on 09/03/2024 for recheck and second opinion. To make sure there is no serious underlying heart condition, ask to help you get more tests for your heart that cannot be done here in the ER.? Such as Holter Monitor (cardiac monitoring at home from a day to even a month), heart stress test (on treadmill or with medication), echocardiogram (imaging of your heart structures), heart catherization (checking for blockages in your heart arteries), and a referral to see a Condenser Winder.? 5. Seek immediate medical care with worsening or with any concerns.?? Print Language: Serbian Stand Alone Forms: [facility] Award Info., Patient Portal Info Letter
--- NOTE | 2024-09-01 20:45 | XR_ITS ---
Examination: PA chest single view TECHNIQUE: Upright PA chest single view Date and time: September 01, [id number] hours Comparison August 18, 2024 INDICATIONS: Chest pain 3 days FINDINGS: Normal heart size Lungs are clear. The osseous structures are intact IMPRESSION: No active disease
[2024-09-01 20:46] VITALS: BP 134/83; PULSE 81; RESP 20; TEMP 37.1; O2SAT 96; BMI 30.8
--- NOTE | 2024-09-01 20:46 | PC.NURSE ---
PT SENT BACK FOR EKG PROMPTLY
[2024-09-01 21:07] LABS: Basophils # (Auto) 0.1 Thou/mm3 (0.0-0.2); Basophils % (Auto) 1 % (0-2.5); Eosinophils # (Auto) 0.2 Thou/mm3 (0.0-0.5); Eosinophils % (Auto) 3 % (0-10); Hematocrit 37.3 % (41.0-53.0); Hemoglobin 12.7 g/dL (13.5-16.0); Immature Granulocytes % (Auto) 0 % (0-0); Immature Granulocytes Auto 0.03 Thou/mm3 (0.00-0.00); Lymphocytes # (Auto) 2.2 Thou/mm3 (1.0-4.8); Lymphocytes % (Auto) 31 % (10-50); Mean Corpuscular Hemoglobin 31.4 pg (25.0-35.0); Mean Corpuscular Volume 92 fL (80-100); Monocytes # (Auto) 0.8 Thou/mm3 (0.0-0.8); Monocytes % (Auto) 11 % (0-12); Neutrophils # (Auto) 3.9 Thou/mm3 (1.8-7.7); Neutrophils % (Auto) 54 % (37-80); Nucleated Red Blood Cell % 0 /100 WBC (0); Platelet Count 245 Thou/mm3 (140-440); RDW Standard Deviation 43.8 fL (35.1-43.9); Red Blood Count 4.05 Miln/mm3 (4.50-5.90); White Blood Count 7.1 Thou/mm3 (3.8-10.6)
[2024-09-01 21:23] LABS: Anion Gap 8 (7-16); BUN/Creatinine Ratio 16 Ratio (12-20); Blood Urea Nitrogen 16 mg/dL (9-23); Carbon Dioxide 26.7 mMol/L (20.0-31.0); Chloride 110 mMol/L (98-107); Estimated Creatinine Clearance 72.5 mL/min (>60); Glucose 123 mg/dL (74-106); Osmolality,Calculated 290 (275-295); Potassium 4.4 mMol/L (3.4-5.1); Sodium 145 mMol/L (136-145); Troponin I < 0.002 ng/mL (0.0-0.045); eGFR > 60 See Note
== END 2024-09-01 22:28 | disposition home or self-care (01) ==
PROVIDERS: Emergency Provider Emergency Medicine; PCP Internal Medicine
DX: R07.89 Other chest pain (principal)
CPT/HCPCS: 36415; 71045; 80048; 83735; 84484; 85025; 93005; 99283

== ENCOUNTER → 2024-11-28 | Outpatient (CLI) | payer MEDICARE, BC, SELFPAY ==
[2024-11-28 09:52] LABS: Basophils # (Auto) 0.1 Thou/mm3 (0.0-0.2); Basophils % (Auto) 1 % (0-2.5); Eosinophils # (Auto) 0.2 Thou/mm3 (0.0-0.5); Eosinophils % (Auto) 3 % (0-10); Hematocrit 38.5 % (41.0-53.0); Hemoglobin 12.4 g/dL (13.5-16.0); Immature Granulocytes Auto 0.03 Thou/mm3 (0.00-0.00); Lymphocytes # (Auto) 1.4 Thou/mm3 (1.0-4.8); Lymphocytes % (Auto) 22 % (10-50); Mean Corpuscular HGB Conc 32.2 g/dl (31.0-37.0); Mean Corpuscular Hemoglobin 31.2 pg (25.0-35.0); Mean Corpuscular Volume 97 fL (80-100); Monocytes # (Auto) 0.8 Thou/mm3 (0.0-0.8); Monocytes % (Auto) 12 % (0-12); Neutrophils # (Auto) 4.0 Thou/mm3 (1.8-7.7); Neutrophils % (Auto) 62 % (37-80); Nucleated Red Blood Cell # 0.00 Thou/mm3 (0.00-0.00); Nucleated Red Blood Cell % 0 /100 WBC (0); Platelet Count 232 Thou/mm3 (140-440); RDW Standard Deviation 46.2 fL (35.1-43.9); Red Blood Count 3.97 Miln/mm3 (4.50-5.90); White Blood Count 6.4 Thou/mm3 (3.8-10.6)
[2024-11-28 10:14] LABS: Alanine Aminotransferase 37 U/L (10-49); Albumin, Serum 4.5 gm/dL (3.4-4.8); Albumin/Globulin Ratio 2.1 (1.2-2.2); Alkaline Phosphatase 103 U/L (46-116); Anion Gap 11 (7-16); Aspartate Amino Transferase 30 U/L (0-34); BUN/Creatinine Ratio 13 Ratio (12-20); Bilirubin,Total 1.3 mg/dL (0.3-1.2); Blood Urea Nitrogen 12 mg/dL (9-23); Calcium 10.1 mg/dL (8.3-10.6); Calcium (Corrected) 10.1 mg/dL (8.5-10.1); Carbon Dioxide 25.0 mMol/L (20.0-31.0); Cardiac Risk Estimate 2.9 RATIO (4.0-6.7); Chloride 108 mMol/L (98-107); Cholesterol 110 mg/dL (132-200); Creatinine (Component) 0.9 mg/dL (0.6-1.3); Globulin 2.1 gm/dL (2.3-3.5); Glucose 96 mg/dL (74-106); HDL Cholesterol 38 mg/dL (40-60); LDL Cholesterol,Calculated 48 mg/dL (0-130); Osmolality,Calculated 286 (275-295); Potassium 4.1 mMol/L (3.4-5.1); Sodium 144 mMol/L (136-145); Total Protein 6.6 gm/dL (5.7-8.2); Triglycerides 120 mg/dL (30-150); eGFR > 60 See Note
[2024-11-28 10:19] LABS: Collection Type, Urine Clean Catch; RBC,Urine 0 /hpf (0-3)
[2024-11-28 10:59] LABS: Bilirubin,Urine Negative (Negative); Blood,Urine Negative (Negative); Clarity,Urine Clear (Clear/Hazy); Color,Urine Colorless (Lt Yel-Yel); Glucose, Urine Negative (Negative); Ketones,Urine Negative (Negative); Leukocyte Esterase,Urine Negative (Negative); Nitrite,Urine Negative (Negative); PH,Urine 6.5 (5.0-7.0); Protein,Urine Negative (Neg - Trace); Specific Gravity,Urine 1.006 (1.001-1.035); Squamous Epithelial Cell,Urine < 1 /hpf (0-5); Urobilinogen,Urine Negative mg/dL (0.0-1.0); WBC,Urine 1 /hpf (0-5)
== END | disposition home or self-care (01) ==
LOC: COPL 09:05
PROVIDERS: PCP Internal Medicine; Referring Provider Internal Medicine; Visit Provider Internal Medicine
DX: I10 Essential (primary) hypertension (principal); E78.5 Hyperlipidemia, unspecified
CPT/HCPCS: 36415; 80053; 80061; 81001; 85025

== ENCOUNTER → 2025-01-07 | Outpatient (BNVA) | payer MEDICARE, BC, SELFPAY | END | disposition home or self-care (01) | PROVIDERS: PCP Internal Medicine; Referring Provider Internal Medicine; Visit Provider Urology | DX: N40.0 Benign prostatic hyperplasia without lower urinary tract symptoms (principal); N20.0 Calculus of kidney; Z87.442 Personal history of urinary calculi; I48.91 Unspecified atrial fibrillation; Z79.01 Long term (current) use of anticoagulants; I10 Essential (primary) hypertension | CPT/HCPCS: 81003; 99212; G0463 ==

== ENCOUNTER → 2025-01-13 | Outpatient (CLI) | payer MEDICARE, BC, SELFPAY ==
[2025-01-13 17:05] LABS: Basophils # (Auto) 0.1 Thou/mm3 (0.0-0.2); Basophils % (Auto) 1 % (0-2.5); Eosinophils # (Auto) 0.3 Thou/mm3 (0.0-0.5); Eosinophils % (Auto) 5 % (0-10); Hematocrit 36.0 % (41.0-53.0); Hemoglobin 11.2 g/dL (13.5-16.0); Immature Granulocytes Auto 0.04 Thou/mm3 (0.00-0.00); Lymphocytes # (Auto) 1.8 Thou/mm3 (1.0-4.8); Lymphocytes % (Auto) 26 % (10-50); Mean Corpuscular HGB Conc 31.1 g/dl (31.0-37.0); Mean Corpuscular Hemoglobin 30.2 pg (25.0-35.0); Mean Corpuscular Volume 97 fL (80-100); Monocytes # (Auto) 0.9 Thou/mm3 (0.0-0.8); Monocytes % (Auto) 12 % (0-12); Neutrophils # (Auto) 3.8 Thou/mm3 (1.8-7.7); Neutrophils % (Auto) 55 % (37-80); Nucleated Red Blood Cell # 0.00 Thou/mm3 (0.00-0.00); Nucleated Red Blood Cell % 0 /100 WBC (0); Platelet Count 234 Thou/mm3 (140-440); RDW Standard Deviation 46.0 fL (35.1-43.9); Red Blood Count 3.71 Miln/mm3 (4.50-5.90); White Blood Count 6.9 Thou/mm3 (3.8-10.6)
[2025-01-13 17:18] LABS: INR 1.1 (0.9-1.3); Partial Thromboplastin Time 30.2 Seconds (22.0-36.0); Prothrombin Time 11.7 Seconds (9.0-12.2)
[2025-01-13 17:21] LABS: Albumin, Serum 4.3 gm/dL (3.4-4.8); Anion Gap 9 (7-16); BUN/Creatinine Ratio 11 Ratio (12-20); Blood Urea Nitrogen 9 mg/dL (9-23); Calcium 9.4 mg/dL (8.3-10.6); Calcium (Corrected) 9.4 mg/dL (8.5-10.1); Carbon Dioxide 25.6 mMol/L (20.0-31.0); Chloride 109 mMol/L (98-107); Creatinine (Component) 0.8 mg/dL (0.6-1.3); Glucose 109 mg/dL (74-106); Osmolality,Calculated 286 (275-295); Phosphorous 3.3 mg/dL (2.4-5.1); Potassium 4.2 mMol/L (3.4-5.1); Sodium 144 mMol/L (136-145); eGFR > 60 See Note
== END | disposition home or self-care (01) ==
LOC: COPL 14:05
PROVIDERS: PCP Internal Medicine; Referring Provider Internal Medicine Clinical Cardiac Electrophysiology; Visit Provider Internal Medicine Clinical Cardiac Electrophysiology
DX: I48.0 Paroxysmal atrial fibrillation (principal); Z79.02 Long term (current) use of antithrombotics/antiplatelets
CPT/HCPCS: 36415; 80069; 85025; 85610; 85730